=== PATIENT | female | born 1955 | race Caucasian/White ===

== ENCOUNTER → 2018-01-30 | Day surgery (SDC) | payer OTHER ==
[2018-01-27 09:23] LABS: ANION GAP 12.9 mmol/L (8-16); CALCIUM 9.7 mg/dL (8.4-10.2); CREATININE, SERUM 0.98 mg/dL (0.57-1.11); POTASSIUM 3.9 mmol/L (3.5-5.1)
[~2018-01-30] MED LIST: CEFTRIAXONE SOD 1 GM VIAL ONE; DEPO; DEPO-TESTOS100 MG/ML IM; DEXAMETHASONE SOD PHOS INJ 4 MG/ML VIAL ONE; FENTANYL CITRATE/PF 100MCG/2 ML INJ ONE; IOPAMIDOL 610MG/1ML 300 MG/ML VIAL IV ONE; LIDOCAINE HCL 2% LOCAL INJ 5 ML SDV VIAL INJ ONE; LOSARTAN POTASS25 MG; LOSARTAN POTASS25 MG PO; METOPROLOL; METOPROLOL SUCC50 MG PO; MIDAZOLAM HCL 2 MG/2 ML VIAL ONE; ONDANSETRON HCL INJ 2 MG/ML VIAL ONE; PROPOFOL IV EMULSION 10 MG/ML 20 ML VIAL ONE; SEVOFLURANE INHAL SOLN 250 ML PEN BTL ONE
--- NOTE | 2018-01-30 06:35 | Diagnostic Imaging Report ---
ABDOMEN-1VIEW (KUB) Clinical history: Preoperative for kidney stone Technique: AP view abdomen Comparison: None Findings: Right upper quadrant clips. 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 Dominant 2 mm calculus projects over the right upper renal shadow. Left renal shadow poorly visualized due to overlying bowel gas. Multiple presumed pelvic phleboliths. Nonobstructive bowel gas pattern. Scattered degenerative changes. Impression: Right nephrolithiasis. Signed by: Dr Acacia Harrison MD on 01/30/2018 6:32 AM
[2018-01-30 08:55] VITALS: BP 156/86
--- NOTE | 2018-03-12 09:34 | Operative Report ---
DATE OF PROCEDURE: January 30, 2018 PREOPERATIVE DIAGNOSES 1. Right nephrolithiasis. 2. Urinary tract infections. POSTOPERATIVE DIAGNOSES 1. Right nephrolithiasis. 2. Urinary tract infections. 3. Grade 2 cystocele. 4. Grade 2 rectocele. 5. Atrophic (senile) vaginitis. OPERATIONS PERFORMED: Note, these are all staged procedures as part of multistage, multistep process of managing the patient's urolithiasis. 1. Right-sided extracorporeal shock lithotripsy (separate procedure performed for the nephrolithiasis). 2. Cystourethroscopy with bilateral ureteral catheterization and retrograde ureteropyelography (separate procedure performed for the urinary tract infections). 3. Interpretation of retrograde ureteropyelography. 4. Supervision of fluoroscopy. No radiologist present. 5. Pelvic examination under anesthesia. ANESTHESIA: General. COMPLICATIONS: None. CLINICAL SUMMARY: Shalonda Jackson is a 62-year-old woman with the above preoperative diagnoses. She is brought for the above procedures. She is aware of the risks of bleeding, infection, injury to adjacent structures, need for additional procedures, and she elected to proceed. OPERATIVE PROCEDURE IN DETAIL: Informed consent was verified. Shalonda Jackson was properly identified and taken to the operating room and placed on the lithotripsy table in the supine position. Anesthesia was uneventfully begun. The patient's right-sided stone upper caliceal right-sided stone was identified and localized with biplanar fluoroscopy. A total of 3000 shocks were delivered with fragmentation noted. The patient was then carefully and gently repositioned in the dorsal lithotomy position with all pressure points well-padded. Her genitalia were prepared and draped in the usual sterile fashion. A 22.5-[place] cystourethroscope and sheath was inserted in the patient's urethra and bladder was drained. Panendoscopy of the urinary bladder revealed no suspicious mucosal lesions. No tumors. No stones and no diverticula. Normally positioned and configured ureteral orifices were identified. Ureteral catheter was used to cannulate each ureter, and retrograde ureteropyelograms were performed. Interpretation of retrograde ureteropyelography. Contrast was instilled in a retrograde fashion bilaterally. There were no tumors. There were no suspicious lesions or filling defects in the right upper pole corresponding to place of lithotripsy. Unobstructed drainage was observed bilaterally fluoroscopically. There is no hydronephrosis. Pelvic examination under anesthesia revealed a grade 2 cystocele and grade 2 rectocele. There was atrophic (senile) vaginitis. No abnormal palpable pelvic masses could be appreciated. There were no suspicious visible lesions to the vaginal mucosa. The patient was then uneventfully reversed from anesthesia and taken to the recovery room in stable condition. There no complications to the procedure. She tolerated the procedure well. Explicit postoperative instructions were given. Will follow the patient up in the office. Job#: [id number] RI cc:DAHLIA MONTERO MD
== END | disposition home or self-care (01) ==
LOC: OR 05:10
PROVIDERS: ATTEND Urology
DX: N20.0 Calculus of kidney (principal); N39.0 Urinary tract infection, site not specified; N81.10 Cystocele, unspecified; N81.6 Rectocele; N95.2 Postmenopausal atrophic vaginitis; I10 Essential (primary) hypertension; I38 Endocarditis, valve unspecified; E03.9 Hypothyroidism, unspecified; E11.9 Type 2 diabetes mellitus without complications; E27.40 Unspecified adrenocortical insufficiency; Z88.8 Allergy status to other drugs, medicaments and biological substances; Z88.6 Allergy status to analgesic agent; Z91.041 Radiographic dye allergy status; Z91.040 Latex allergy status; Z01.810 Encounter for preprocedural cardiovascular examination; Z01.812 Encounter for preprocedural laboratory examination
CPT/HCPCS: 36415 ×2; 50590; 74018; 80048; 82948; 93005; C1758; J0696; J1100; J2001; J2250; J2405; J2704; Q9967

== ENCOUNTER → 2018-03-26 | Outpatient (CLI) | payer OTHER ==
[~2018-03-26] MED LIST changes: -CEFTRIAXONE SOD 1 GM VIAL ONE; -DEXAMETHASONE SOD PHOS INJ 4 MG/ML VIAL ONE; -FENTANYL CITRATE/PF 100MCG/2 ML INJ ONE; -IOPAMIDOL 610MG/1ML 300 MG/ML VIAL IV ONE; -LIDOCAINE HCL 2% LOCAL INJ 5 ML SDV VIAL INJ ONE; -MIDAZOLAM HCL 2 MG/2 ML VIAL ONE; -ONDANSETRON HCL INJ 2 MG/ML VIAL ONE; -PROPOFOL IV EMULSION 10 MG/ML 20 ML VIAL ONE; -SEVOFLURANE INHAL SOLN 250 ML PEN BTL ONE
--- NOTE | 2018-03-26 07:24 | Diagnostic Imaging Report ---
Exam: Abdominal film Clinical History: Renal stone Comparison: 01/30/2018 DISCUSSION: As before, there is a 2 mm calculus projecting over the upper pole of the right kidney. No additional calculi project over the renal shadows or expected ureteral courses. Right upper quadrant surgical clips. 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 Bowel gas pattern is nonobstructive. Regional skeletal structures are intact. IMPRESSION: Unchanged right renal calculus as above. Signed by: Dr. Odin Page M.D. on 03/26/2018 7:21 AM
== END ==
LOC: RAD 06:46
PROVIDERS: ATTEND Urology
DX: N20.0 Calculus of kidney (principal)
CPT/HCPCS: 74018

== ENCOUNTER → 2018-09-25 | Outpatient (CLI) | payer BC ==
--- NOTE | 2018-09-25 08:09 | Diagnostic Imaging Report ---
Abdomen, 2 views. History: Renal stones Comparison: 03/26/2018. Findings: The intestinal gas pattern is nonobstructive. There are right upper quadrant surgical clips. There no masses. Tiny stone overlies the right upper pole appearing unchanged. The osseous structures reveal lateral marginal osteophytes to the left side at L to L3. Diffuse vascular calcification also present with round curvilinear calcification in the left upper quadrant. Injection granulomas are noted. IMPRESSION: 1. No acute abdominal abnormality. 2. Tiny right upper pole renal stone. Signed by: Dr. Dilip Hernandez DO on 09/25/2018 8:05 AM
== END ==
LOC: RAD 06:40
PROVIDERS: ATTEND Urology
DX: N20.0 Calculus of kidney (principal)
CPT/HCPCS: 74018